=== PATIENT | male | born 1970 | race Caucasian/White ===

== ENCOUNTER 2018-03-07 07:42 | Day surgery (SDC) ==
[2018-03-07] MEDS: BETADINE OPTH PREP OP PRN ×2 (08:40→09:09)
[2018-03-07] MEDS: TETRACAINE 0.5% UNIT-DOSE OP PRN ×2 (08:40→09:09)
[2018-03-07] MEDS: CYCLOGYL 2% OPTH OP PRN ×3 (08:41→08:51)
[2018-03-07] MEDS ORDERED: LIDOCAINE 1% 20 ML MDV ID STA (08:45)
[2018-03-07] MEDS ORDERED: ZOFRAN 4 MG/2 ML IVP ONE (08:45)
[2018-03-07] MEDS ORDERED: DEX-MOXI-KETOR OPTH INJ 1/0.5/0.4 MG/ML IO ONE (08:45)
[2018-03-07] MEDS ORDERED: LIDOCAINE 1%/PHENYLEPHRINE 1.5% BSS (SURGERY) INTRAOCULA ONE (08:45)
[2018-03-07] MEDS ORDERED: BRIMONIDINE TARTRATE 0.2% OPTH SOL OP PRN (08:45)
[2018-03-07] MEDS ORDERED: BSS WITH EPINEPHRINE OP ONE (08:45)
[2018-03-07 08:58] VITALS: TEMP 98.4
[2018-03-07] MEDS ORDERED: SUBLIMAZE ONE (09:21)
[2018-03-07] MEDS ORDERED: ZOFRAN 4 MG/2 ML ONE (09:21)
[2018-03-07] MEDS ORDERED: VERSED ONE (09:21)
[2018-03-09 11:33] VITALS: BP 112/56
== END 2018-03-07 10:15 | disposition home or self-care (01) ==
LOC: SURG 07:42
PROVIDERS: ATTEND Ophthalmology
DX: H52.4 Presbyopia (principal)